=== PATIENT | female | born 1955 | race Caucasian/White ===

== ENCOUNTER 2024-03-26 06:23 | Day surgery (SDC) | payer BC, SELFPAY ==
[2024-03-26] VITALS (11 sets, daily range): BP systolic 97–133; BP diastolic 45–68; BMI 22.9
[2024-03-26] MEDS: NORMOSOL-R 1000 IV (07:41)
[2024-03-26] MEDS: TYLENOL 1000 MG PO (07:41)
--- NOTE | 2024-03-26 09:31 | HP.FOC2 ---
Focused History & Physical
Chief Complaint
HPI:
Chief Complaint: Right upper quadrant pain
HPI / Indication for Planned Procedure: Patient is a 68-year-old female with a known history of gallstones that she has been following expectantly. She has been having intermittent bouts of postprandial epigastric abdominal pain rating to the right
upper quadrant as well as isolated right upper quadrant pain rating to the back and subscapular area often associated with nausea but no vomiting. She was referred for surgical evaluation recently by her completions engineer due to increasing
frequency and severity of her symptoms felt to be due to biliary colic.
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
Relevant Social History: Negative
Relevant Family History: Negative
Relevant Past Surgical History: Positive for (Excision right parotid gland tumor x 2 and radiation therapy; appendectomy; abdominoplasty)
Review of Systems
Review of Pertinent Systems: All Systems Negative
Medication
See Medication form for detailed medications: Yes
Medication List (including Herbals & OTC):
loratadine 10 mg tablet (Claritin) 10 mg PO DAILY 03/22/24
pantoprazole 40 mg tablet,delayed release 40 mg PO DAILY 03/22/24
Medications Reviewed: Yes
Allergies and Reactions
Patient has Allergies: Yes
Noted Allergies and Reactions:
Allergy/AdvReac Type Severity Reaction Status Date / Time
house dust Allergy nasal Verified 03/26/24 07:20
congestion
pollen extracts Allergy Seasonal Verified 03/26/24 07:20
allergy
Pertinent Physical Exam
All Other Systems: Negative
Head/Neck: Normal
Lungs: Normal
Heart: Normal
Abdomen: Normal and Other (Surgical scars)
Extremities: Normal
Neurological: Normal
Diagnosis / Assessment
68-year-old female with history of symptomatic cholelithiasis presenting for cholecystectomy
Plan / Procedure
Laparoscopic cholecystectomy with intraoperative cholangiogram
Anesthesia/Sedation to be done by Anesthesia Provider: Yes
--- NOTE | 2024-03-26 09:35 | W.SUR.PREOP ---
Pre-Operative Surgical Note
-
I have examined this patient prior to the performance of the scheduled procedure.
The patient's condition is unchanged from the time of the current History and
Physical and the patient is able to undergo the scheduled procedure.
--- NOTE | 2024-03-26 11:17 | W.IMMPOSTOP ---
Addendum entered and electronically signed by Atul Valera MD 03/26/24 11:25:
#[id number]
Original Note:
Surgical Immed Post Op Note
-
Primary Surgeon: Soto
Assisting Surgeon: None
Pre-op Diagnosis: Symptomatic cholelithiasis
Post-op Diagnosis: Symptomatic cholelithiasis
Procedure Performed: Laparoscopic cholecystectomy with intraoperative cholangiogram
Anesthesia Type: GETA +0.25% Marcaine
Specimen / Cultures: Gallbladder
Estimated Blood Loss: 4 mL
Complications: None immediate
Operative Findings: Gallbladder with stone. Normal intraoperative cholangiogram. Cystic duct, artery and posterior artery branch individually controlled with hemoclips. Gallbladder removed intact and extracted at epigastric port site.
[2024-03-26] MEDS: DILAUDID 0.25 MG IV (11:54)
== END 2024-03-26 14:29 | disposition home or self-care (01) ==
LOC: SDS 06:23
PROVIDERS: ATTENDING PHYSICIAN Surgery
DX: K80.10 Calculus of gallbladder with chronic cholecystitis without obstruction (principal)
CPT/HCPCS: 47563; 88304; 74300; 76000; A4300